=== PATIENT | female | born 1945 | race Two or more races ===

== ENCOUNTER 2016-12-13 04:09 | Emergency (ER) | payer OTHER ==
[2016-12-13] MEDS ORDERED: TOPROL XL50 M1 PO (04:19)
[2016-12-13] MEDS ORDERED: COUMADIN (04:19)
[2016-12-13] MEDS ORDERED: [UNRECOGNIZED DRUG - OTHER] (04:20)
[2016-12-13] MEDS ORDERED: [UNRECOGNIZED DRUG - OTHER] (04:21)
[2016-12-13] MEDS ORDERED: PRILOSEC OTC20 M1 PO (04:21)
== END 2016-12-13 06:10 ==
LOC: EDMED 04:09
PROC: 0RSJXZZ Reposition Right Shoulder Joint, External Approach (ICD-10-PCS; principal; 2016-12-13)
DX: S43.004A Unspecified dislocation of right shoulder joint, initial encounter (principal); I48.91 Unspecified atrial fibrillation; I10 Essential (primary) hypertension; Z79.899 Other long term (current) drug therapy; X58.XXXA Exposure to other specified factors, initial encounter
CPT/HCPCS: J1170; J1885; J2704